=== PATIENT | male | born 1945 | race Caucasian/White ===

== ENCOUNTER 2016-10-25 09:59 | Emergency (ER) | payer MEDICARE, OTHER ==
[2016-10-25 10:13] VITALS: BP 151/73
--- NOTE | 2016-10-25 10:52 | UC ---
Complaint Male HPI - HPI Summary HPI Summary: TWO DAYS OF BURNING WITH URINATION AND INCREASED FREQUENCY. NO BLOOD IN URINE. NO BACK PAIN. NO KNOWN FEVER. NO ABDOMINAL PAIN. HAD UTI ABOUT TEN YEARS AGO, RESOLVED WITH ANTIBIOTICS. NO HISTORY OF PROSTATE CONCERNS. - History of Current Complaint Chief Complaint: UC Stated Complaint: FREQ URINATION Time Seen by Provider: 10/25/16 10:19 Hx Obtained From: Patient Onset/Duration: Gradual Onset, Lasting Days, Still Present Timing: Constant Severity Initially: Mild Severity Currently: Moderate Location: Suprapubic Character: Burning Aggravating Factor(s): Voiding Associated Signs And Symptoms: Positive: Fever - MILD 99F, Dysuria - Allergies/Home Medications Allergies/Adverse Reactions: Allergies Allergy/AdvReac Type Severity Reaction Status Date / Time No Known Allergies Allergy Verified 10/25/16 10:07 PMH/Surg Hx/FS Hx/Imm Hx Previously Healthy: Yes Cardiovascular History Of: Reports: Hypertension - Surgical History Surgical History: Yes Surgery Procedure, Year, and Place: "broken left knee" surgery . left groin surgery. Hernia surgery - Family History Known Family History: Negative: Renal Disease - Social History Occupation: Retired Lives: With Family Alcohol Use: None Substance Use Type: None Smoking Status (MU): Never Smoked Tobacco - Immunization History Most Recent Influenza Vaccination: fall 2015 Review of Systems Constitutional: Fever - 99F Skin: Negative Eyes: Negative ENT: Negative Respiratory: Negative Cardiovascular: Negative Gastrointestinal: Negative Genitourinary: Dysuria, Frequency, Urgency Motor: Negative Neurovascular: Negative Musculoskeletal: Negative Neurological: Negative Psychological: Negative All Other Systems Reviewed And Are Negative: Yes Physical Exam Triage Information Reviewed: Yes Appearance: Well-Appearing, No Pain Distress, Well-Nourished Vital Signs: Initial Vital Signs Temp 99.5 F 10/25/16 10:09 Pulse 89 10/25/16 10:09 Resp 16 10/25/16 10:09 BP 151/73 10/25/16 10:09 Pulse Ox 96 10/25/16 10:09 Vital Signs Reviewed: Yes Eye Exam: Normal Eyes: Positive: Conjunctiva Clear ENT Exam: Normal ENT: Positive: Normal ENT inspection, Hearing grossly normal, TMs normal Dental Exam: Normal Neck exam: Normal Neck: Positive: Supple, Nontender Respiratory Exam: Normal Respiratory: Positive: Chest non-tender, Lungs clear, Normal breath sounds Cardiovascular Exam: Normal Cardiovascular: Positive: RRR, No Murmur, Pulses Normal Abdominal Exam: Normal Abdomen Description: Positive: Nontender, No Organomegaly, Soft. Negative: CVA Tenderness (R), CVA Tenderness (L) Musculoskeletal Exam: Normal Musculoskeletal: Positive: Strength Intact, ROM Intact, No Edema Neurological Exam: Normal Psychological Exam: Normal Skin Exam: Normal Complaint Male Course/Dx - Differential Dx/Diagnosis Differential Diagnosis/HQI/PQRI: Urinary Tract Infection Provider Diagnoses: URINARY TRACT INFECTION Discharge - Discharge Plan Condition: Stable Disposition: HOME Prescriptions: Phenazopyridine TAB* [Pyridium TAB*] 100 mg PO TID PRN #15 tab PRN Reason: Pain Sulfamethox/Trimethoprim DS* [Bactrim DS 800/160 TAB*] 1 tab PO BID #10 tab Patient Education Materials: Urinary Tract Infection in Men (ED) Referrals: Ghanshyam Vaz MD [Primary Care Provider] - Ayden Jackson MD [Medical Doctor] -
== END 2016-10-25 10:50 | disposition home or self-care (01) ==
LOC: UCEAST 09:59
DX: N39.0 Urinary tract infection, site not specified (principal); B96.89 Other specified bacterial agents as the cause of diseases classified elsewhere; I10 Essential (primary) hypertension
CPT/HCPCS: 81002; 87077; 87086; 87186; 99212; G0463

== ENCOUNTER 2018-01-16 15:08 | Emergency (ER) | payer MEDICARE, OTHER ==
[2018-01-16 15:21] VITALS: BP 191/103
[2018-01-16] MEDS ORDERED: Valsartan TAB* 160 MG PO ONE (15:47)
--- NOTE | 2018-01-16 17:43 | UC ---
Hugo Parker Nikita, scribed for Layo Chen MD on 01/16/18 at 1549 . Headache HPI - HPI Summary HPI Summary: This patient is a 72 year old M presenting to [facility] with a chief complaint of HOUGH since 1000 but has since resolved. The patient woke up this morning with elevated BP and the HOUGH. The patient went to work and then came back home to take his BP again and it was 188/80 but his sx were resolved. Repeat BP here was 184/102. The patient rates the pain 0/10 in severity. Symptoms aggravated by nothing. Symptoms alleviated by spontaneous resolution. Patient reports HTN. Patient denies HOUGH at this time, CP, and SOB. The patient reports that he usually takes his BP meds at midnight and states that he usually doesnt have elevated BP. - History Of Current Complaint Chief Complaint: UCHeadache Stated Complaint: HIGH BLOOD PRESSURE,HEADACHE Time Seen by Provider: 01/16/18 15:35 Hx Obtained From: Patient Onset/Duration: Sudden Onset, Lasting Hours, Resolved Onset Of Symptoms: Sudden Currently Pain Is: Current Pain Scale(0-10)= Pain Intensity: 0 Pain Scale Used: 0-10 Numeric Timing: Hours Aggravating Factor(s): Nothing Allevating Factor(s): Other (Noted In Comments) - spontaneous resolution Associated Signs And Symptoms: Positive: Other (Noted In Comments) - Patient reports HTN. Patient denies HOUGH at this time, CP, and SOB. - Allergies/Home Medications Allergies/Adverse Reactions: Allergies Allergy/AdvReac Type Severity Reaction Status Date / Time No Known Allergies Allergy Verified 01/16/18 15:21 PMH/Surg Hx/FS Hx/Imm Hx Cardiovascular History: Hypertension GI/ History: Gastroesophageal Reflux - Surgical History Surgical History: Yes Surgery Procedure, Year, and Place: "broken left knee" surgery . left groin surgery. Hernia surgery - Family History Known Family History: Positive: Hypertension, Other Negative: Renal Disease Family History: HLD - Social History Alcohol Use: None Substance Use Type: None Smoking Status (MU): Never Smoked Tobacco - Immunization History Most Recent Influenza Vaccination: fall 2015 Review of Systems Respiratory: Other - denies SOB Cardiovascular: Other - HTN; denies CP Neurological: Headache - resolved now All Other Systems Reviewed And Are Negative: Yes Physical Exam - Summary Physical Exam Summary: VITAL SIGNS: Reviewed. GENERAL: ~Patient is a well-developed and nourished MALE who is lying comfortable in the stretcher. ~Patient is not in any acute respiratory distress. HEAD AND FACE: Normocephalic EYES: PERRLA, EOMI x 2. EARS: Hearing grossly intact. MOUTH: Oropharynx within normal limits. NECK: Supple, trachea is midline, no adenopathy, no JVD, no carotid bruit. CHEST: Symmetric, no tenderness at palpation LUNGS: Clear to auscultation bilaterally. No wheezing or crackles. CVS: Regular rate and rhythm, S1 and S2 present, no murmurs or gallops appreciated. ABDOMEN: Soft, non-tender. Bowel sounds are normal. No abdominal abnormal pulsations. EXTREMITIES: Full ROM in all major joints, no edema, no cyanosis or clubbing. NEURO: Alert and oriented x 3. No acute neurological deficits. Speech is normal and follows commands. SKIN: Dry and warm Triage Information Reviewed: Yes Vital Signs: Initial Vital Signs Temp 98.2 F 01/16/18 15:19 Pulse 86 01/16/18 15:19 Resp 18 01/16/18 15:19 BP 191/103 01/16/18 15:19 Pulse Ox 99 01/16/18 15:19 Vital Signs Reviewed: Yes Re-Evaluation - Re-Evaluation First Eval Re-Evaluation Time: 15:55 Comment: Discussed discharge plan with the patient. Headache Course/Dx - Course Course Of Treatment: This patient is a 72 year old M presenting to [facility] with a chief complaint of HOUGH that has since resolved and HTN since 1000. The patient was found to have increased BP in UC. He is asymptomatic. He has no complaints. He will take an extra dose of Diovan. Wait for 1 hour and repeat BP is elevated he will go to the EF for further management. The patient will follow up with PCP for better control of BP. In the UC, the patient was given Diovan. The patient will take an extra dose at home for BP meds and take his regular BP meds at midnight. If BP continues to be elevated, he was instructed to go to the ED for further care. He was also instructed to return to UC or ED if he develops CP, SOB, or HOUGH. The pt is hemodynamically stable, alert and oriented x3. Plan of care was discussed with the patient, and patient understands and agrees. All questions were answered to patient satisfaction. There were no further complaints or concerns. - Differential Dx/Diagnosis Differential Diagnosis/HQI/PQRI: Migraine, Tension Headache Provider Diagnoses: HTN Discharge - Sign-Out/Discharge Documenting (check all that apply): Discharge - Discharge Plan Condition: Stable Disposition: HOME Patient Education Materials: Chronic Hypertension (DC) Referrals: Ghanshyam Vaz MD [Primary Care Provider] - Additional Instructions: FOLLOW UP WITH YOUR PRIMARY CARE PROVIDER WITHIN ONE WEEK FOR HIGH BLOOD PRESSURE NOTED TODAY. RETURN TO URGENT CARE FOR ANY WORSENING OR NEW SYMPTOMS. - Billing Disposition and Condition Condition: STABLE Disposition: HOME The documentation as recorded by the Hugo breen Nikita accurately reflects the service I personally performed and the decisions made by , Layo Chen MD.
== END 2018-01-16 16:03 | disposition home or self-care (01) ==
LOC: UCEAST 15:08
DX: I10 Essential (primary) hypertension (principal); K21.9 Gastro-esophageal reflux disease without esophagitis
CPT/HCPCS: 99211; A9270-GY; G0463